=== PATIENT | male | born 1955 | race Caucasian/White ===

== ENCOUNTER 2017-01-20 17:33 | Emergency (ER) | payer OTHER ==
[2017-01-20 17:51] VITALS: RESP 20; TEMP 98.4
--- NOTE | 2017-01-20 18:04 | EDPHY ---
H & P Time Seen by Provider: 01/20/17 17:43 HPI/ROS: HPI Left hand burn. 61-year-old male by private vehicle. This patient was using a blow torch on his brick garden patio to remove weeds. He reports that a hot tar like substance splattered up onto the palmar aspect of the left hand. It landed mostly on his thenar eminence. He reports he immediately tore this off and some skin removed with it. He now has a debrided blister-like area involving the thenar eminence. He also got a small amount of this tar like substance adhered on the 4th finger dorsal aspect nail and paronychial area. He is right- hand dominant. He denies any other injury he denies any significant past medical history. ROS: Constitutional: No fever, no chills. No weakness. Eyes: No discharge. No changes in vision. ENT: No sore throat. No nasal congestion or rhinorrhea. Respiratory: No cough. No shortness of breath. Skin: As above. Neurological: No headache. No focal weakness or altered sensation. Past medical history: Denies any significant past medical history. No prescription medications. Social history: Nonsmoker. Here by himself. No alcohol. Physical Exam: General Appearance: Alert, no distress. This patient is responding to questions appropriately and in full sentences. This patient appears well- hydrated and well-nourished. Eyes: Pupils equal and round no pallor or injection. No lid edema, erythema or injection. Left hand exam: He has a second-degree burn area that has been debrided as described above involving about 25% of the greater thenar eminence palmar aspect of his hand. There is a black tar like substance splattered on the more distal aspects of the greater thenar eminence. There is no circumferential burn. The burn does not significantly involved the flexure extensor crease of his wrist. The left thumb flexor, extensor, abduction, adduction function is intact. He also has this tar like substance adhered to the nail involving the dorsal aspect of the left 4th finger. He has a small amount of second-degree burn to the dorsal paronychial area. There are no evidence of circumferential flores. The left hand is neurovascularly intact. Neurological: Motor sensory function is grossly intact. Cranial nerves are normal. Gait is normal. Skin: Warm and dry, no rashes. Musculoskeletal: Neck is supple and nontender. Extremities are symmetrical. All joints range without pain or impingement. Psychiatric: No agitation. No depression. Database: EKG: Imaging: Procedures: Emergency department course: Flores were cleansed and debrided of loose skin followed by application of bacitracin ointment and a nonadherent burn dressing was placed. Plan will be to have the patient follow up at the [facility] for re- evaluation this week. Hand given the contact information to schedule a clinic appointment to do this. He is in agreement with this plan. I discussed ibuprofen dosing for pain control with him. He does not want stronger pain medication. Emergency department precautions were reviewed. All of his questions were answered. He was discharged in good condition. Differential Diagnosis: The differential diagnosis on this patient includes but is not limited to 1st and second-degree flores of left hand. This represents a partial list of diagnoses considered. These considerations are based on history, physical exam , past history, reassessment and diagnostic testing. Smoking Status: Former smoker Constitutional: Initial Vital Signs Temperature (C) 36.9 C 01/20/17 17:46 Heart Rate 75 01/20/17 17:46 Respiratory Rate 20 01/20/17 17:46 Blood Pressure 145/87 H 01/20/17 17:46 O2 Sat (%) 96 01/20/17 17:46 O2 Delivery Mode Room Air Allergies/Adverse Reactions: No Known Allergies Allergy (Unverified 01/20/17 17:44) Home Medications: Medication Instructions Recorded NK [No Known Home Meds] 01/20/17 Departure - Departure Disposition: Home, Routine, Self-Care Clinical Impression: Burn of left hand Condition: Good Instructions: Second Degree Burn (ED) Additional Instructions: Call the [facility] tomorrow to follow up in their burn clinic this week as discussed. The number for the burn clinic is [phone]. Your burn dressing should be changed every 2 days. Gently cleanse area with a mild soap followed by thorough rinse and blot dry. Followed by application of bacitracin antibiotic ointment to the burn area itself, followed by application of a non adherent dressing. Return to the emergency department for worsening pain, swelling, discoloration or other serious concerns. Referrals: STEPHEN ENGEL [Primary Care Provider] - As per Instructions
[2017-01-20 18:32] VITALS: BP 143/87; PULSE 82; O2SAT 95
== END 2017-01-20 18:30 | disposition home or self-care (01) ==
LOC: CED 17:33
DX: T23.202A Burn of second degree of left hand, unspecified site, initial encounter (principal); X19.XXXA Contact with other heat and hot substances, initial encounter; Y92.007 Garden or yard of unspecified non-institutional (private) residence as the place of occurrence of the external cause